=== PATIENT | male | born 1970 | race Two or more races ===

== ENCOUNTER 2019-07-26 09:14 | Day surgery (SDC) | payer OTHER | END 2019-07-26 14:22 | disposition home or self-care (01) | LOC: AMB-ENDOS 09:14 → ADM 11:15 → AMB-ENDOS 14:22 | PROVIDERS: ATTEND Colon & Rectal Surgery | DX: D12.2 Benign neoplasm of ascending colon (principal); K64.1 Second degree hemorrhoids ==

== ENCOUNTER 2019-08-30 12:15 | Inpatient (IN) | payer OTHER ==
[~2019-08-30] VITALS: Ht 165.1 cm; Wt 82.1 kg
[2019-08-30] MEDS ORDERED: PRILOSEC OTC20 MG PO (13:46)
[2019-08-30] MEDS ORDERED: COZAAR50 MG PO (13:46)
== END 2019-09-06 14:25 | disposition home or self-care (01) | DRG 331 ==
LOC: O/R 09-03 07:28 → SURH 09-03 07:28 → O/R 09-03 12:15 → SURH 09-03 12:15
PROVIDERS: ADMIT Colon & Rectal Surgery; ATTEND Colon & Rectal Surgery
PROC: 0DBN4ZZ Excision of Sigmoid Colon, Percutaneous Endoscopic Approach (ICD-10-PCS; 2019-09-03)
PROC: 0DJD8ZZ Inspection of Lower Intestinal Tract, Via Natural or Artificial Opening Endoscopic (ICD-10-PCS; 2019-09-03)
PROC: 0DTP4ZZ Resection of Rectum, Percutaneous Endoscopic Approach (ICD-10-PCS; principal; 2019-09-03 11:00)
DX: K57.30 Diverticulosis of large intestine without perforation or abscess without bleeding (principal); I11.9 Hypertensive heart disease without heart failure; E11.9 Type 2 diabetes mellitus without complications

== ENCOUNTER 2020-10-23 10:09 | Day surgery (SDC) | payer OTHER ==
[~2020-10-23 10:09] MED LIST: COZAAR50 MG PO; PRILOSEC OTC20 MG PO
== END 2020-10-23 16:45 | disposition home or self-care (01) ==
LOC: AMB-ENDOS 10:09
PROVIDERS: ATTEND Colon & Rectal Surgery
DX: D12.3 Benign neoplasm of transverse colon (principal); K64.2 Third degree hemorrhoids; Z20.822 Contact with and (suspected) exposure to COVID-19

== ENCOUNTER 2023-05-09 16:39 | Emergency (ER) | payer OTHER ==
[~2023-05-09] VITALS: Ht 165.1 cm; Wt 96.2 kg
[2023-05-09] MEDS ORDERED: HYOSCYAMINE SULFATE 0.125 MG TAB.SUBL SL ONE (17:30)
[2023-05-09] MEDS ORDERED: 0.9 % SODIUM CHLORIDE 500 ML IV SCH (17:30)
[2023-05-09] MEDS ORDERED: INSULIN REGULAR, HUMAN 1,000 UNIT/10 ML UNITS SUBCUTANEO ONE (17:30)
[2023-05-09 17:48] LABS: HEMATOCRIT 44.3 % (39.0-48.0); HEMOGLOBIN 15.7 g/dL (13-16.00); MEAN CELL VOLUME 93.2 fL (80.0-100.00); MEAN CORPUSCULAR HGB CONC 35.4 g/dl (32.0-36.0); PLATELET COUNT 209 K/uL (150-450); RED BLOOD COUNT 4.75 M/uL (4.00-6.00); RED CELL DISTRIBUTION WIDTH 12.8 % (11.5-14.5)
[2023-05-09 17:53] LABS: PH,URINE 5.5 (5.0-8.0); URINE APPEARANCE Turbid; URINE BILIRRUBIN Negative (NEGATIVE); URINE BLOOD Negative; URINE COLOR Dark Yellow; URINE LEUKOCYTE Negative; URINE NITRATE Negative; URINE PROTEIN Negative (NEGATIVE)
[2023-05-09 17:56] LABS: URINE BACTERIA 6.2 uL (0.0-1933); URINE EPITHELIAL CELLS 4.7 uL (0.0-38.8)
[2023-05-09 17:57] LABS: URINE GLUCOSE 250 MG/DL (NEGATIVE); URINE RBC 0.8 uL (0.0-20.8)
[2023-05-09 18:06] LABS: ALBUMIN 4.1 gm/dL (3.4-5.0); BILIRUBIN TOTAL 1.17 mg/dL (0.3-1.2); CALCIUM 9.6 mg/dL (8.5-10.1); CREATININE SERUM 0.96 mg/dL (0.70-1.30); GFR 82.91; GLOBULINA 4.1 G/DL (2.4-3.5); POTASSIUM 3.87 mEq/L (3.5-5.1); TOTAL PROTEIN 8.2 gm/dL (6.4-8.2)
[2023-05-09] MEDS ORDERED: METRONIDAZOLE/SODIUM CHLORIDE 500 MG/100 ML PIGGYBACK IV ONE (21:30)
[2023-05-09] MEDS ORDERED: ACETAMINOPHEN 500 MG GEL..CAP PO ONE (21:30)
== END 2023-05-09 23:27 | disposition home or self-care (01) ==
LOC: ER 16:39
PROVIDERS: Emergency Medicine
DX: K62.89 Other specified diseases of anus and rectum (principal); E11.9 Type 2 diabetes mellitus without complications; I10 Essential (primary) hypertension